=== PATIENT | male | born 1990 | race Caucasian/White ===

== ENCOUNTER 2023-09-01 08:20 | Emergency (ER) | payer OTHER ==
[~2023-09-01] VITALS: Ht 177.8 cm; Wt 92.9 kg
[2023-09-01] MEDS ORDERED: MUCI1TAB16 PO (08:43)
[2023-09-01 09:38] LABS: RSV AMPLIFICATION NEGATIVE (NEGATIVE)
[2023-09-01] MEDS ORDERED: PSEU120T19 PO (10:18)
[2023-09-01] MEDS ORDERED: ALBU8.5H INH (10:18)
[2023-09-01] MEDS ORDERED: FLON1SPR NARES (10:20)
[2023-09-01 10:48] VITALS: BP 162/80; TEMP 97.8; O2SAT 97
== END 2023-09-01 11:09 | disposition home or self-care (01) ==
LOC: M ED 09:26
DX: R09.81 Nasal congestion (principal); M79.10 Myalgia, unspecified site; R06.02 Shortness of breath; F17.210 Nicotine dependence, cigarettes, uncomplicated

== ENCOUNTER → 2024-07-18 | Outpatient (CLI) | payer OTHER ==
[~2024-07-18] MED LIST: ALBU8.5H INH; FLON1SPR NARES; MUCI1TAB16 PO; PSEU120T19 PO
== END ==
LOC: M RAD 07:44
PROVIDERS: ATTEND Physician Assistant
DX: M77.01 Medial epicondylitis, right elbow (principal); G56.23 Lesion of ulnar nerve, bilateral upper limbs

== ENCOUNTER → 2024-10-04 | Outpatient (CLI) | payer OTHER | LOC: M PLAIMG 06:35 | PROVIDERS: ATTEND Physical Medicine & Rehabilitation | DX: M54.50 Low back pain, unspecified (principal) ==

== ENCOUNTER 2025-03-12 08:26 | Day surgery (SDC) | payer OTHER ==
[~2025-03-12] VITALS: Ht 177.8 cm; Wt 110.7 kg
[~2025-03-12 08:26] MED LIST changes: +CELE1CAP4 PO; +PANT40TA29 PO; +TRAZ-257; +VALS1TAB66 PO; +VITA100093 PO
[2025-03-12] MEDS ORDERED: LIDOCAINE 2% 100MG/5ML SDV (FOR ANES.) As Ordered ONE (10:50)
[2025-03-12] MEDS ORDERED: propofoL 200 MG/20 ML VIAL As Ordered ONE (10:50)
[2025-03-12] MEDS ORDERED: fentaNYL 100 MCG/2 ML INJECTION As Ordered ONE (10:50)
[2025-03-12 11:20] VITALS: TEMP 96.8
[2025-03-12 11:36] VITALS: BP 117/58; O2SAT 99
== END 2025-03-12 11:49 | disposition home or self-care (01) ==
LOC: M OPP 08:26
PROVIDERS: ATTEND Surgery
DX: K63.5 Polyp of colon (principal); K64.0 First degree hemorrhoids; I10 Essential (primary) hypertension; M19.90 Unspecified osteoarthritis, unspecified site; G47.33 Obstructive sleep apnea (adult) (pediatric); F17.210 Nicotine dependence, cigarettes, uncomplicated; Z79.899 Other long term (current) drug therapy
CPT/HCPCS: 45380; 88305; J3010

== ENCOUNTER 2025-09-28 14:29 | Emergency (ER) | payer OTHER ==
[~2025-09-28] VITALS: Ht 177.8 cm; Wt 108.9 kg
[2025-09-28] MEDS ORDERED: AMLO1TAB24 (14:38)
[2025-09-28 17:23] VITALS: BP 143/87; TEMP 98; O2SAT 97
== END 2025-09-28 17:25 | disposition home or self-care (01) ==
LOC: M ED 14:29
DX: M72.2 Plantar fascial fibromatosis (principal); Z79.899 Other long term (current) drug therapy

== ENCOUNTER → 2025-11-12 | Outpatient (CLI) | payer OTHER ==
[~2025-11-12] MED LIST changes: +AMLO1TAB24
== END ==
LOC: M SOG 07:42
PROVIDERS: ATTEND Orthopaedic Surgery
DX: M25.561 Pain in right knee (principal)